=== PATIENT | female | born 1940 | race Caucasian/White ===

== ENCOUNTER → 2020-09-19 | Outpatient (CLI) | payer MEDICARE | LOC: KOH-I 12:47 | DX: I63.81 Other cerebral infarction due to occlusion or stenosis of small artery (principal); G81.94 Hemiplegia, unspecified affecting left nondominant side; I65.23 Occlusion and stenosis of bilateral carotid arteries | CPT/HCPCS: 70544; 70551; 93880 ==

== ENCOUNTER → 2020-09-21 | Outpatient (CLI) | payer MEDICARE ==
[2020-09-21 09:31] LABS: BUN/CREATININE RATIO 36 (0-10)
== END ==
LOC: CT 08:34
PROVIDERS: Psychiatry & Neurology Neurology
DX: I65.23 Occlusion and stenosis of bilateral carotid arteries (principal); M47.812 Spondylosis without myelopathy or radiculopathy, cervical region; I65.8 Occlusion and stenosis of other precerebral arteries
CPT/HCPCS: 36415; 70496; 70498; 80053; Q9967

== ENCOUNTER → 2020-10-01 | Outpatient (CLI) | payer MEDICARE ==
[2020-10-01 10:42] LABS: HEMOGLOBIN 11.1 gm/dl (12.3-15.3); RED BLOOD COUNT 3.87 M/UL (4.00-5.10); WHITE BLOOD COUNT 6.4 K/UL (4.5-11.0)
[2020-10-01 11:05] LABS: BUN/CREATININE RATIO 30 (0-10)
== END ==
LOC: OPSV2 09:41
PROVIDERS: Surgery
DX: Z01.818 Encounter for other preprocedural examination (principal); E11.9 Type 2 diabetes mellitus without complications; Z20.822 Contact with and (suspected) exposure to COVID-19; Z87.891 Personal history of nicotine dependence
CPT/HCPCS: 36415; 71046; 80053; 81001; 85025; 85610; 85730; 87077; 87086; 87186; 93005

== ENCOUNTER → 2020-10-04 | Outpatient (CLI) | payer MEDICARE | LOC: ECHO 09:18 | DX: R94.31 Abnormal electrocardiogram [ECG] [EKG] (principal); I42.2 Other hypertrophic cardiomyopathy | CPT/HCPCS: ECHO; 93306 ==

== ENCOUNTER → 2020-11-05 | Outpatient (CLI) | payer MEDICARE ==
[2020-11-05 10:09] LABS: HEMOGLOBIN 10.8 gm/dl (12.3-15.3); RED BLOOD COUNT 3.78 M/UL (4.00-5.10); WHITE BLOOD COUNT 6.2 K/UL (4.5-11.0)
== END ==
LOC: LAB 09:32
PROVIDERS: Surgery
DX: Z01.812 Encounter for preprocedural laboratory examination (principal); I65.22 Occlusion and stenosis of left carotid artery; Z79.899 Other long term (current) drug therapy; Z79.02 Long term (current) use of antithrombotics/antiplatelets
CPT/HCPCS: 36415; 80048; 85027; 85610